=== PATIENT | male | born 1985 | race Caucasian/White ===

== ENCOUNTER 2020-04-03 12:26 | Emergency (ER) | payer MEDICAID, SELFPAY ==
[~2020-04-03] VITALS: Ht 172.7 cm; Wt 113.4 kg
[2020-04-03 12:26] VITALS: BP 137/77; Ht 172.7 cm; Wt 113.4 kg
== END 2020-04-03 13:25 | disposition home or self-care (01) ==
LOC: ED 12:26
DX: Z03.818 Encounter for observation for suspected exposure to other biological agents ruled out (principal); Z20.828 Contact with and (suspected) exposure to other viral communicable diseases
CPT/HCPCS: U0003-CS